=== PATIENT | female | born 1970 | race Caucasian/White ===

== ENCOUNTER 2018-07-16 10:20 | Emergency (ER) | payer BC ==
[~2018-07-16] VITALS: Ht 157.4 cm; Wt 61.2 kg
[~2018-07-16 10:20] MED LIST: PHENERGAN W/ DE30 ML PO; PREDNICOT10 MG PO; PROAIR HFA0.09 MG/AC INH
[2018-07-16] MEDS ORDERED: ZYRTEC10 MG PO (10:48)
[2018-07-16] MEDS ORDERED: FLONASE ALLERG9.9 ML NAS (10:48)
[2018-07-16] MEDS ORDERED: AUGMENTIN 875-875 MG PO (10:48)
[2018-07-16] MEDS ORDERED: PREDNISONE20 M1 PO (10:48)
== END 2018-07-16 11:03 | disposition home or self-care (01) ==
LOC: ED 10:20
DX: J01.10 Acute frontal sinusitis, unspecified (principal)

== ENCOUNTER 2019-11-29 12:05 | Emergency (ER) | payer SELFPAY ==
[~2019-11-29] VITALS: Ht 157.4 cm; Wt 59.0 kg
[~2019-11-29 12:05] MED LIST changes: +AUGMENTIN 875-875 MG PO; +FLONASE ALLERG9.9 ML NAS; +PREDNISONE20 M1 PO; +ZYRTEC10 MG PO
[2019-11-29] MEDS ORDERED: IBU800 MG PO (14:07)
[2019-11-29] MEDS ORDERED: CYCLOBENZAPRINE10 MG PO (14:07)
== END 2019-11-29 14:19 | disposition home or self-care (01) ==
LOC: ED 12:05
DX: S49.91XA Unspecified injury of right shoulder and upper arm, initial encounter (principal); Z79.899 Other long term (current) drug therapy; X58.XXXA Exposure to other specified factors, initial encounter; Y93.89 Activity, other specified; Y92.89 Other specified places as the place of occurrence of the external cause; Y99.8 Other external cause status

== ENCOUNTER 2020-06-20 09:31 | Emergency (ER) | payer OTHER ==
[~2020-06-20] VITALS: Wt 59.9 kg
[~2020-06-20 09:31] MED LIST changes: +CYCLOBENZAPRINE10 MG PO; +IBU800 MG PO
[2020-06-20] MEDS ORDERED: Tobrex Ophth S2.5 ML OPH (09:56)
[2020-06-20] MEDS ORDERED: ACULAR 5 ML5 M1 OPH (09:56)
== END 2020-06-20 10:25 | disposition home or self-care (01) ==
LOC: ED 09:31
DX: S05.01XA Injury of conjunctiva and corneal abrasion without foreign body, right eye, initial encounter (principal); Z79.899 Other long term (current) drug therapy; X58.XXXA Exposure to other specified factors, initial encounter; Y93.89 Activity, other specified; Y92.89 Other specified places as the place of occurrence of the external cause; Y99.8 Other external cause status

== ENCOUNTER 2022-07-22 11:46 | Emergency (ER) | payer SELFPAY ==
[~2022-07-22] VITALS: Ht 157.4 cm; Wt 55.8 kg
[~2022-07-22 11:46] MED LIST changes: +ACULAR 5 ML5 M1 OPH; +Tobrex Ophth S2.5 ML OPH
[2022-07-22 12:33] LABS: BASO % 0.4 % (0.0-1.0); EOS # 0.1 10*3/uL (0.0-0.4); HEMATOCRIT 46.2 % (37.0-47.0); LYMPH # 1.7 10*3/uL (1.3-4.4); LYMPH % 30.9 % (27.0-41.0); MEAN CELL VOLUME 95.7 fl (81.0-99.0); MEAN CORPUSCULAR HGB 33.5 pg (27.0-31.0); MEAN CORPUSCULAR HGB CONC 35.1 g/dl (33.0-37.0); MEAN PLATELET VOLUME 9.9 fl (9.6-12.3); MONO # 0.5 10*3/uL (0.1-1.0); MONO % 8.5 % (3.0-9.0); NEUT # 3.2 10*3/uL (2.3-7.9); NEUT % 57.8 % (47.0-73.0); PLATELET COUNT AUTOMATED 194 10*3/uL (130-400); RED BLOOD COUNT 4.83 10*6/uL (4.10-5.10); RED CELL DISTRI WIDTH 11.4 % (0-14.5); WHITE BLOOD COUNT 5.6 10*3/uL (4.8-10.8)
[2022-07-22 12:50] LABS: ALKALINE PHOSPHATASE 81 U/L (46-116); BUN 10 mg/dl (9-23); CHLORIDE 104 mmol/L (98-107); SGPT/ALT 67 U/L (10-49); TOTAL PROTEIN 7.6 gm/dL (6.0-8.0)
[2022-07-22] MEDS ORDERED: PREDNISONE20 M1 PO (13:03)
[2022-07-22] MEDS ORDERED: VIBRAMYCIN100 MG PO (13:03)
== END 2022-07-22 13:08 | disposition home or self-care (01) ==
LOC: ED 11:46
PROVIDERS: Nurse Practitioner
DX: J40 Bronchitis, not specified as acute or chronic (principal); R74.01 Elevation of levels of liver transaminase levels; Z98.890 Other specified postprocedural states

== ENCOUNTER → 2022-11-15 | Outpatient (CLI) | payer BC ==
[~2022-11-15] MED LIST changes: +VIBRAMYCIN100 MG PO
[2022-11-15 15:11] LABS: BILIRUBIN Negative (Negative); BLOOD Negative (Negative); CLARITY Cloudy (Clear); COLOR Orange (Yellow); GLUCOSE Negative (Negative); KETONE Trace (Negative); LEUKO ESTERASE Trace (Negative); NITRITE Negative (Negative); PH 7.5 (4.5-8.0)
[2022-11-15 15:15] LABS: BASO % 0.6 % (0.0-1.0); EOS # 0.1 10*3/uL (0.0-0.4); EOS % 1.4 % (1.0-4.0); HEMATOCRIT 50.5 % (37.0-47.0); LYMPH # 1.6 10*3/uL (1.3-4.4); LYMPH % 33.1 % (27.0-41.0); MEAN CELL VOLUME 94.7 fl (81.0-99.0); MEAN CORPUSCULAR HGB CONC 35.8 g/dl (33.0-37.0); MEAN PLATELET VOLUME 10.9 fl (9.6-12.3); MONO # 0.4 10*3/uL (0.1-1.0); MONO % 8.7 % (3.0-9.0); NEUT # 2.7 10*3/uL (2.3-7.9); PLATELET COUNT AUTOMATED 146 10*3/uL (130-400); RED BLOOD COUNT 5.33 10*6/uL (4.10-5.10); RED CELL DISTRI WIDTH 11.4 % (0-14.5); RETICULOCYTE % 1.26 % (0.50-2.50); WHITE BLOOD COUNT 4.8 10*3/uL (4.8-10.8)
[2022-11-15 15:19] LABS: BACTERIA 1+; RBC 0-2 rbc/hpf (0-2); WBC 0-2 wbc/hpf (0-5)
[2022-11-15 15:41] LABS: ALKALINE PHOSPHATASE 75 U/L (46-116); BUN 10 mg/dl (9-23); CHLORIDE 104 mmol/L (98-107); CHOLESTEROL 160 mg/dL (<200); GAMMA GLUTAMYL TRANSPEPTIDASE 112 U/L (0-73); LDL CHOLESTEROL 70 mg/dL (9-159); POTASSIUM 4.1 mmol/L (3.4-5.1); SGPT/ALT 114 U/L (10-49); T3 UPTAKE 16.5 % (22.4-36.7); TOTAL PROTEIN 7.7 gm/dL (6.0-8.0); TRIGLYCERIDES 140 mg/dl (<150); URIC ACID 5.2 mg/dL (3.1-7.8); VITAMIN D, 25-HYDROXY 26.4 ng/mL (30-100)
[2022-11-16 07:07] LABS: HBSAG Negative (Negative); HEP B CORE AB, IGM Negative (Negative)
[2022-11-16 08:10] LABS: AFP TUMOR MARKER 10.4 ng/mL (0.0-9.2)
[2022-11-16 12:08] LABS: ANTI-DSDNA ANTIBODIES 2 IU/mL (0-9)
[2022-11-19 15:06] LABS: HEPATITIS C ANTIBODY Reactive (Non Reactive)
== END | disposition home or self-care (01) ==
LOC: LAB 14:39
PROVIDERS: ATTEND Family Medicine
DX: E78.5 Hyperlipidemia, unspecified (principal); E55.9 Vitamin D deficiency, unspecified; R79.89 Other specified abnormal findings of blood chemistry; R53.83 Other fatigue; R74.8 Abnormal levels of other serum enzymes; R06.02 Shortness of breath

== ENCOUNTER → 2022-12-31 | Outpatient (CLI) | payer BC | END | disposition home or self-care (01) | LOC: CT 01:02 | PROVIDERS: ATTEND Family Medicine | DX: J43.2 Centrilobular emphysema (principal); R91.8 Other nonspecific abnormal finding of lung field; R77.2 Abnormality of alphafetoprotein; I72.8 Aneurysm of other specified arteries; K76.0 Fatty (change of) liver, not elsewhere classified ==

== ENCOUNTER → 2023-01-07 | Day surgery (SDC) | payer BC ==
[~2023-01-07] VITALS: Ht 157.4 cm; Wt 55.8 kg
[2023-01-07] VITALS (8 sets, daily range): BP systolic 109–142; BP diastolic 62–96
[~2023-01-07] MED LIST changes: +SPIRIVA RESPIMAT4 GM INH; +SYMB160 INH; +VISTARIL50 MG PO
[2023-01-08 13:06] LABS: ACID FAST SPEC PROCESSING Concentration (.)
== END ==
LOC: SDC 01-04 10:15
PROVIDERS: ATTEND Internal Medicine Critical Care Medicine
DX: J98.09 Other diseases of bronchus, not elsewhere classified (principal); R22.2 Localized swelling, mass and lump, trunk; J44.9 Chronic obstructive pulmonary disease, unspecified; J45.40 Moderate persistent asthma, uncomplicated; R63.4 Abnormal weight loss; Z87.891 Personal history of nicotine dependence; Z86.16 Personal history of COVID-19; Z79.899 Other long term (current) drug therapy

== ENCOUNTER → 2023-01-14 | Outpatient (CLI) | payer BC | END | disposition home or self-care (01) | LOC: CARD 14:22 | PROVIDERS: ATTEND Family Medicine | DX: J43.9 Emphysema, unspecified (principal); R09.02 Hypoxemia ==

== ENCOUNTER → 2023-02-05 | Outpatient (CLI) | payer BC ==
[2023-02-05 12:12] LABS: BASO % 0.3 % (0.0-1.0); EOS # 0.1 10*3/uL (0.0-0.4); EOS % 1.4 % (1.0-4.0); HEMATOCRIT 45.5 % (37.0-47.0); LYMPH # 1.5 10*3/uL (1.3-4.4); LYMPH % 21.4 % (27.0-41.0); MEAN CORPUSCULAR HGB 33.6 pg (27.0-31.0); MEAN CORPUSCULAR HGB CONC 35.4 g/dl (33.0-37.0); MEAN PLATELET VOLUME 9.9 fl (9.6-12.3); MONO # 0.5 10*3/uL (0.1-1.0); MONO % 6.6 % (3.0-9.0); PLATELET COUNT AUTOMATED 174 10*3/uL (130-400); RED BLOOD COUNT 4.79 10*6/uL (4.10-5.10); RED CELL DISTRI WIDTH 11.2 % (0-14.5); WHITE BLOOD COUNT 7.1 10*3/uL (4.8-10.8)
[2023-02-05 12:36] LABS: ALKALINE PHOSPHATASE 68 U/L (46-116); BUN 10 mg/dl (9-23); CHLORIDE 105 mmol/L (98-107); POTASSIUM 4.4 mmol/L (3.4-5.1); SGPT/ALT 100 U/L (10-49); TOTAL PROTEIN 7.5 gm/dL (6.0-8.0)
== END | disposition home or self-care (01) ==
LOC: LAB 11:26
PROVIDERS: ATTEND Physician Assistant
DX: R74.01 Elevation of levels of liver transaminase levels (principal)

== ENCOUNTER → 2023-05-16 | Outpatient (CLI) | payer MEDICAID ==
[2023-05-17 20:08] LABS: HEPATITIS C QUANTITATION HCV Not Detected IU/mL (.)
== END | disposition home or self-care (01) ==
LOC: LAB 15:54
PROVIDERS: ATTEND Physician Assistant
DX: B18.2 Chronic viral hepatitis C (principal)

== ENCOUNTER 2025-01-31 12:50 | Emergency (ER) | payer MEDICAID ==
[~2025-01-31] VITALS: Ht 160 cm; Wt 55.3 kg
[2025-01-31] MEDS ORDERED: VIBRAMYCIN100 MG PO (13:18)
[2025-01-31 13:26] LABS: BILIRUBIN 2+ (Negative); BLOOD Trace-Lysed (Negative); CLARITY Turbid (Clear); COLOR Orange (Yellow); KETONE Trace (Negative); LEUKO ESTERASE 3+ (Negative); NITRITE Negative (Negative); PH 5.0 (4.5-8.0); SPECIFIC GRAVITY >= 1.030 (1.001-1.030); UROBILINOGEN 2.0 E.U./dl (0.0-1.0)
[2025-01-31] MEDS ORDERED: Water, Sterile 10 ML VIAL ONE (13:44)
[2025-01-31 13:54] LABS: BACTERIA 2+; WBC TNTC wbc/hpf (0-5)
== END 2025-01-31 13:40 | disposition home or self-care (01) ==
LOC: ED 12:50
PROVIDERS: Nurse Practitioner Family
DX: N89.8 Other specified noninflammatory disorders of vagina (principal); Z79.899 Other long term (current) drug therapy

== ENCOUNTER 2025-02-27 20:17 | Observation (INO) | payer MEDICAID ==
[~2025-02-27] VITALS: Ht 160 cm; Wt 53.5 kg
[2025-02-27 20:30] VITALS: BP 148/91
[2025-02-27] MEDS ORDERED: Albuterol Sulf/Ipratropium 3 ML VIAL NEB ONE (21:00)
[2025-02-27 21:36] LABS: BASO # 0.0 10*3/uL (0.0-0.1); BASO % 0.2 % (0.0-1.0); EOS # 0.1 10*3/uL (0.0-0.4); EOS % 1.7 % (1.0-4.0); MEAN CELL VOLUME 96.1 fl (81.0-99.0); MEAN CORPUSCULAR HGB 32.7 pg (27.0-31.0); MEAN PLATELET VOLUME 10.1 fl (9.6-12.3); MONO # 0.3 10*3/uL (0.1-1.0); MONO % 7.1 % (3.0-9.0); NEUT # 3.4 10*3/uL (2.3-7.9); NEUT % 70.1 % (47.0-73.0); NUCLEATED RED BLOOD CELL 0.0 % (0.0-0.0); NUCLEATED RED BLOOD CELL 0.0 10*3/uL (0.0-0.0); PLATELET COUNT AUTOMATED 159 10*3/uL (130-400); RED CELL DISTRI WIDTH 11.6 % (0-14.5)
[2025-02-27 22:09] LABS: BUN 20 mg/dl (9-23)
[2025-02-28] MEDS ORDERED: SODIUM CHLORIDE 0.9% 100 ML BAG IV ONE (00:45)
[2025-02-28] MEDS ORDERED: IOHEXOL 350 MG/ML 100 ML VIAL IV ONE (00:45)
[2025-02-28 05:22] VITALS: BP 141/90
[2025-02-28 07:16] VITALS: BP 122/89
[2025-02-28] MEDS ORDERED: Ondansetron Hydrochloride 4 MG/2 ML VIAL IV PRN (08:55)
[2025-02-28] MEDS ORDERED: BISACODYL 5 MG TAB PO PRN (08:55)
[2025-02-28] MEDS ORDERED: BISACODYL 10 MG SUPP R PRN (08:55)
[2025-02-28] MEDS ORDERED: ACETAMINOPHEN 650 MG SUPP R PRN (08:55)
[2025-02-28] MEDS ORDERED: ACETAMINOPHEN 325 MG TAB PO PRN (08:55)
[2025-02-28] MEDS ORDERED: ADV 500/50 INH (09:27)
[2025-02-28] MEDS ORDERED: Albuterol Sulf/Ipratropium 3 ML VIAL NEB SCH (10:15)
[2025-02-28] MEDS ORDERED: AZITHROMYCIN 250 ML IV SCH (11:00)
[2025-02-28] MEDS ORDERED: Albuterol Sulf/Ipratropium 3 ML VIAL NEB ONE ×3 (11:41→19:27)
[2025-02-28] MEDS ORDERED: AZITHROMYCIN 250 ML IV ONE (11:59)
[2025-02-28 14:05] VITALS: BP 109/74
[2025-02-28 17:13] VITALS: BP 134/81
[2025-02-28] MEDS ORDERED: GUAIFENESIN 600 MG TAB ER PO SCH (22:00)
== END 2025-02-28 17:41 | disposition short-term general hospital (02) ==
LOC: ED 20:17 → EDHOLD 02-28 08:25
PROVIDERS: Emergency Medicine; ADMIT Internal Medicine; ATTEND Internal Medicine
DX: J96.01 Acute respiratory failure with hypoxia (principal); R91.8 Other nonspecific abnormal finding of lung field; R11.2 Nausea with vomiting, unspecified; Z20.822 Contact with and (suspected) exposure to COVID-19; Z79.899 Other long term (current) drug therapy; Z98.890 Other specified postprocedural states; Z98.51 Tubal ligation status